=== PATIENT | female | born 1980 | race Caucasian/White ===

== ENCOUNTER 2019-05-24 01:39 | Emergency (ER) | payer OTHER, SELFPAY ==
[2019-05-24 01:49] VITALS: BP 148/88; PULSE 88; RESP 18; TEMP 36.2; O2SAT 100
--- NOTE | 2019-05-24 01:50 | ED.BURNSMOKE ---
HPI - Burn/Smoke Inhalation General Chief complaint: Burn/Smoke Inhalation Stated complaint: Burn/Smoke Inhalation Time Seen by Provider: 05/24/19 01:49 Source: patient and RN notes reviewed Mode of arrival: EMS Limitations: no limitations History of Present Illness HPI Narrative: A 38 y/o female presents to the ED with a burning to her lower lt leg that happened at 9 AM yesterday morning. She states that she was pouring boiling water into a sink when she spilt some onto the back of her lower lt leg. She reports that she then ran other errands and was trying to not come to the hospital but that [facility] was closed, so she decided to come to the ED because she thinks that she needs abx. Complaint: burn Onset (ago): day(s) (yesterday monring at 9 AM) Type of Exposure: hot liquid (water) Smoke Inhalation: none Place: home Location - Extremities: Left: lower leg Severity: mild Associated symptoms: denies other symptoms Related Data Allergies Allergy/AdvReac Type Severity Reaction Status Date / Time Penicillins AdvReac Mild RASH Verified 10/11/18 13:36 Review of Systems Review of Systems: All systems reviewed & are unremarkable except as noted in HPI and below Integumentary/Breasts: Skin/Breast: Reports other (burn to the back of lower lt leg) PMFSH Past Medical History Medical History (Updated 05/24/19 @ 02:24 by Heydi Carbajal MD) Depression Previous known suicide attempt Surgical History Surgical History (Updated 05/24/19 @ 02:01 by Sidney Crane) History of hysterectomy Hx of tubal ligation Social History Social History (Updated 05/24/19 @ 02:01 by Sidney Crane) Smoking packs per day: 1 Smoking cigarettes per day: 20.0 Smoking status: Current every day smoker Tobacco type: cigarettes Substance use: unknown Substance use type: amphetamines Gender identity (if verbalized by the patient): Female Exam Const: General: cooperative, no acute distress and alert Nutritional Appearance: well nourished Orientation/consciousness: patient oriented x3 Limitations: no limitations HENMT: Mouth: Yes lip normal and Yes moist mucous membranes Resp: Effort & Inspection: normal respiratory effort Auscultation: clear to auscultation bilaterally Cardio: Rate: regular rate Rhythm: regular rhythm Skin: General skin exam: normal color Wounds: wounds noted (2nd degree lateral aspect of LLE with some open sloughing blisters) Neuro: General: patient oriented x3 Cognition (Neuro): normal cognition Speech: normal speech Extrem: General: normal to inspection, full ROM and no clubbing, cyanosis or edema Psych: Mental Status: mental status grossly normal Affect: normal affect Attitude: cooperative Course Course Emergency Course: Patient resting comfortably in no distress from second-degree burn sustained yesterday. Patient tetanus shot updated and will discharge home with Silvadene and advised importance of primary care follow-up Vital Signs Vital signs: Vital Signs Temperature 97.1 F L 05/24/19 01:49 Pulse Rate 88 05/24/19 01:49 Respiratory Rate 18 05/24/19 01:49 Blood Pressure 148/88 H 05/24/19 01:49 Pulse Oximetry 100 05/24/19 01:49 Temperature 97.1 F L 05/24/19 01:49 Pulse Rate 88 05/24/19 01:49 Respiratory Rate 18 05/24/19 01:49 Blood Pressure 148/88 H 05/24/19 01:49 Pulse Oximetry 100 05/24/19 01:49 Critical Care Time Critical Care Time Critical Care Time: No Discharge Plan Discharge Clinical Impression: Second degree burn of left lower leg Qualifiers: Encounter type: initial encounter Qualified Code(s): T24.232A - Burn of second degree of left lower leg, initial encounter Patient Disposition: Home, Self-Care Condition: Stable Instructions: Second Degree Burn (ED) Additional Instructions: Gently clean burn twice daily with mild soap and water and apply Silvadene cream. Apply dry dressing. Follow-up with primary care provider in the office for fur
[2019-05-24] MEDS: SILVER SULFADIAZINE 1% CR 50 GM JAR (*BKC) 1 APPLIC TOPICAL (02:00)
[2019-05-24] MEDS: TETANUS,DIPHTHERIA,AC PERTUSSIS ADULT 0.5 ML (ADACEL) IM (02:00)
[2019-05-24 02:40] VITALS: BP 132/77; PULSE 88; RESP 18; O2SAT 98
== END 2019-05-24 02:42 | disposition home or self-care (01) ==
PROVIDERS: Emergency Provider Emergency Medicine; PCP Nurse Practitioner Family
DX: T24.232A Burn of second degree of left lower leg, initial encounter (principal); T31.0 Burns involving less than 10% of body surface; F17.210 Nicotine dependence, cigarettes, uncomplicated; Z23 Encounter for immunization; X12.XXXA Contact with other hot fluids, initial encounter
CPT/HCPCS: 16020; 90471; 90715; 99283; A9270

== ENCOUNTER 2019-10-07 15:36 | Emergency (ER) | payer OTHER, SELFPAY ==
--- NOTE | ~2019-10-07 | XR_ITS ---
EXAMINATION: XR chest 1V portable 10/07/2019 16:58 INDICATION: Near syncope PROCEDURE: AP portable chest COMPARISON: 10/11/2018 FINDINGS: The lungs are clear. The lungs are hyperinflated which is consistent with, but not diagnost ic of chronic obstructive pulmonary disease. The cardiomediastinal silhouette is within normal limits . There are no pleural effusions. There is no pneumothorax suspected. IMPRESSION: 1: NO ACUTE CARDIOPULMONARY DISEASE. Reviewed, dictated and finalized at location A.
[2019-10-07 15:43] VITALS: BP 118/81; PULSE 90; RESP 16; TEMP 36.3; O2SAT 98
[2019-10-07 15:56] VITALS: RESP 18; O2SAT 98
--- NOTE | 2019-10-07 16:24 | ED.GENADULT ---
HPI - General Adult General Chief complaint: Psychiatric Symptoms <Chevy Chavez DO - Last Filed: 10/07/19 18:19> Stated complaint: overheated/weakness <Chevy Chavez DO - Last Filed: 10/07/19 18:19> Time Seen by Provider: 10/07/19 15:42 <Chevy Chavez DO - Last Filed: 10/07/19 18:19> Source: RN notes reviewed <Chevy Chavez DO - Last Filed: 10/07/19 18:19> History of Present Illness HPI narrative: Patient presents emergency department for heat exposure. Patient states she was outside waiting at the bus stop when she felt like she is going to have a near syncopal episode secondary to overheating. States that she began to feel lightheaded and mildly nauseous. States that she feels better now that she is inside cool building. She denies any fevers or chills chest pain shortness of breath or any other symptoms. The patient does state that she has been having suicidal ideation. She states that this is worsened because she is homeless and does not have a place to go. She denies any attempt at harming herself denies any other symptoms at this time <Chevy Chavez DO - Last Filed: 10/07/19 18:19> Related Data Home medications: Home Medications Medication Instructions Recorded Confirmed No Home Medications 10/07/19 10/07/19 <hCevy Chavez DO - Last Filed: 10/07/19 18:19> Allergies/adverse reactions: Allergies Allergy/AdvReac Type Severity Reaction Status Date / Time Penicillins AdvReac Mild RASH Verified 10/07/19 18:27 <Chevy Chavez DO - Last Filed: 10/07/19 18:19> Review of Systems Review of Systems: Narrative: Gen.: Denies fevers or chills ENT: Denies congestion Respiratory: Denies shortness of breath or cough CV: Reports near syncope denies chest pain GI: Denies abdominal pain emesis or diarrhea, denies nausea Musculoskeletal: Denies back pain or muscle pain Neuro: Denies numbness, tingling, weakness or focal weakness Skin: Denies rash Except as documented, all other systems reviewed and negative <Chevy Chavez DO - Last Filed: 10/07/19 18:19> [facility] Past Medical History Medical History: Medical History Depression Previous known suicide attempt <Chevy Chavez DO - Last Filed: 10/07/19 18:19> Surgical History Surgical History: Surgical History (Updated 05/24/19 @ 02:01 by Sidney Crane) History of hysterectomy Hx of tubal ligation <Chevy Chavez DO - Last Filed: 10/07/19 18:19> Social History Social History: Social History Smoking packs per day: 1 Smoking cigarettes per day: 20.0 Smoking status: Current every day smoker Tobacco type: cigarettes Substance use: unknown Substance use type: amphetamines Gender identity (if verbalized by the patient): Female <Chevy Chavez DO - Last Filed: 10/07/19 18:19> Exam Narrative: Exam Narrative: APPEARANCE: No acute distress, nontoxic, resting in bed HEENT: Normocephalic, atraumatic, OMM, TMs clear bilaterally EYES: PERRL, EOMI NECK: Supple, nontender, full range of motion without pain, no meningismus RESPIRATORY: No respiratory distress, clear to auscultation bilaterally with no rhonchi wheezing or rales CARDIOVASCULAR: RRR s murmur ABDOMINAL: Soft, nontender, nondistended MUSCULOSKELETAL: Moves all extremities. No clubbing, cyanosis or edema. NEURO: A and O ?3, following commands, speech normal, cranial nerves II through XII grossly intact,muscle strength 5 out of 5 bilateral upper and lower extremities SKIN:: Warm, dry. Normal Color PSYCHIATRIC: Positive suicidal ideation, denies homicidal ideation <Chevy Chavez DO - Last Filed: 10/07/19 18:19> Course Reevaluation(s) Reevaluation #1: I took over case of patient from Dr. Chavez. Patient has had no complaints. She has been accepted to [facility] for psychiatric eval
[2019-10-07 16:33] LABS: Basophils Absolute Auto 0.1 K/mm3 (0.0-0.1); Basophils Percent Auto 0.4 % (0.2-1.2); Eosinophils Absolute Auto 0.2 K/mm3 (0-0.3); Hematocrit 39.4 % (37.0-47.0); Hemoglobin 13.3 g/dL (12.0-15.0); Immature Granulocyte Absolute 0.11 K/mm3 (0.00-0.031); Immature Granulocyte Percent A 0.6 % (0-0.5); Lymphocytes Absolute Auto 3.88 K/mm3 (0.9-3.2); Lymphocytes Percent Auto 20.3 % (18.3-44.2); Mean Corpuscular HGB Conc 33.8 g/dl (32-36); Mean Corpuscular Hemoglobin 29.1 pg (26-34); Mean Corpuscular Volume 86.2 fl (80-100); Mean Platelet Volume 10.2 fl (7.4-10.4); Monocytes Absolute Auto 0.8 K/mm3 (0.1-0.6); Neutrophils Percent Auto 73.7 % (45.5-73.1); Platelet Count Result 393 k/mm3 (150-375); Red Blood Count 4.57 M/mm3 (4.2-5.4); Red Cell Distribution Width 15.6 % (11.5-14.5); White Blood Count 19.1 K/mm3 (4.5-10.0)
[2019-10-07 16:43] LABS: Ethanol < 10 mg/dL (<10)
[2019-10-07] MEDS: SODIUM CHLORIDE 0.9% IV 1,000 ML 999 ML IV CONT (16:44)
[2019-10-07 16:46] LABS: Alanine Aminotransferase 17 U/L (4-35); Albumin Level 4.3 g/dL (3.5-5.1); Alkaline Phosphatase 126 U/L (38-126); Anion Gap 11.8 mmol/L (7-16); Aspartate Amino Transferase 18 U/L (14-36); Bilirubin,Total 0.3 mg/dL (0.2-1.3); Blood Urea Nitrogen 11 mg/dL (7-17); Calcium 8.6 mg/dL (8.4-10.2); Carbon Dioxide 25 mmol/L (22-30); Chloride 104 mmol/L (98-107); Creatine Kinase 77 U/L (30-135); Estimated CRCL calculation 99 ml/min; Estimated Glomerular Filt Rate > 60; Glucose 99 mg/dL (65-105); Potassium 3.8 mmol/L (3.4-5.0); Sodium 137 mmol/L (137-145)
[2019-10-07 16:57] LABS: Troponin I < 0.012 ng/mL (0.000-0.034)
[2019-10-07 17:51] LABS: Add Urine Microscopic? NO; Appearance Urine Clear (Clear); Bilirubin Urine Negative (Negative); Blood Urine Negative (Negative); Color Urine Yellow (Yellow); Glucose Urine UA Negative (Negative); Ketones Urine Negative (Negative); Leukocyte Esterase Ur Negative LEU/UL (Negative); Nitrate Urine Negative (Negative); Protein Urine Negative (Negative); Specific Grav Ur 1.023 (1.001-1.035); Urobilinogen Urine Negative mg/dL (<2.0)
[2019-10-07 18:17] LABS: Barbiturate Screen Urine Negative (Negative); Benzodiazepines Screen Urine Negative (Negative)
[2019-10-07 18:23] LABS: Cannabinoid Screen Urine Positive (Negative); Cocaine Screen Urine Negative (Negative); Methadone Screen Urine Negative (Negative); Opiate Screen Urine Negative (Negative); Phencyclidine Screen Urine Negative (Negative)
[2019-10-07 19:06] LABS: Amphetamine Screen Urine Positive (Negative)
--- NOTE | 2019-10-07 19:42 | ECG_ITS ---
Measurements Intervals [place] Rate: 89 P: 23 MO: 155 QRS: -14 QRSD: 82 T: 9 QT: 358 QTc: 437 Interpretive Statements SINUS RHYTHM RSR' IN V1 OR V2, CONSIDER RIGHT VENTRICULAR HYPERTROPHY OR RIGHT VCD BORDERLINE R WAVE PROGRESSION, ANTERIOR LEADS BORDERLINE T WAVE ABNORMALITY- ANT/INF LEADS BORDERLINE ECG Electronically Signed On 10-07-2019 20:23:44 CDT by Quan Ford D.O.
[2019-10-07 20:00] VITALS: BP 121/76; PULSE 78; RESP 16; O2SAT 97
--- NOTE | 2019-10-07 22:10 | PC.NURSE ---
Face sheet faxed to [facility]
--- NOTE | 2019-10-07 23:45 | PC.NURSE ---
[phone]--Packet faxed to [facility] [phone]--Packet faxed to [facility]
[2019-10-08] VITALS: BP 118/80; PULSE 80; RESP 18; TEMP 36.3; O2SAT 98
--- NOTE | 2019-10-08 00:32 | PC.NURSE ---
[facility] called back and is requesting Covid swab-ordered by Dr Hammond and done on patient
--- NOTE | 2019-10-08 01:05 | PC.NURSE ---
Patient on phone interview with Beth Kaminski
--- NOTE | 2019-10-08 05:15 | PC.NURSE ---
Report to [facility] at [facility]----Transport called
[2019-10-08 20:42] LABS: SARS-CoV-2 RNA PCR Negative
== END 2019-10-08 05:50 ==
PROVIDERS: Emergency Medicine; Emergency Provider General Practice; PCP Nurse Practitioner Family
DX: R45.851 Suicidal ideations (principal); F17.210 Nicotine dependence, cigarettes, uncomplicated; Z11.59 Encounter for screening for other viral diseases; R94.31 Abnormal electrocardiogram [ECG] [EKG]
CPT/HCPCS: 36415; 71045; 80053; 80307; 81003; 81025; 82550; 84443; 84484; 85025; 87635; 93005; 96360; 96361; 99285; C9803; J7030; U0003

== ENCOUNTER 2019-11-26 14:32 | Emergency (ER) | payer OTHER, SELFPAY ==
[2019-11-26 14:47] VITALS: BP 125/95; PULSE 98; RESP 18; TEMP 37; O2SAT 100
--- NOTE | 2019-11-26 15:40 | ED.PSYCH ---
HPI - Psych General Chief Complaint: Psychiatric Symptoms Stated Complaint: SI Source: patient and EMS Mode of arrival: EMS Limitations: no limitations History of Present Illness HPI Narrative: 39-year-old female Brought in by EMS for evaluation of suicidal ideations Patient story seems to fluctuate depending on who she is discussing with She tells me that the police were supposed to take her to crisis and the crisis was supposed to find her a place She is not super forthcoming with details on this but when pressed she says that crisis is [facility], and that she had talked with them yesterday, and that the reason was for having suicidal thoughts She has no plan She denies recent medical problems, she denies recent ingestions MD complaint: suicidal ideation Onset (ago): day(s) Duration: intermittent History of same: Yes Treatments prior to arrival: none Related Data Home Medications Medication Instructions Recorded Confirmed No Home Medications 10/07/19 10/07/19 Allergies Allergy/AdvReac Type Severity Reaction Status Date / Time Penicillins AdvReac Mild RASH Verified 10/07/19 18:27 Review of Systems Review of Systems: All systems reviewed & are unremarkable except as noted in HPI and below Constitutional: Constitutional: Denies chills, Denies fatigue, Denies fever(s), Denies headache(s) and Denies night sweats Eyes: Eyes: Denies change in vision, Denies loss of vision and Denies other visual disturbances ENT: Denies headache(s), Denies hoarseness, Denies nasal congestion and Denies sore throat Cardiovascular: Cardiovascular: Denies chest pain, Denies leg edema, Denies palpitations and Denies dyspnea Respiratory: Respiratory: Denies cough, Denies dyspnea and Denies wheezing Gastrointestinal: Gastrointestinal: Denies abdominal pain, Denies diarrhea, Denies nausea and Denies vomiting Genitourinary: Genitourinary: Denies hematuria, Denies urinary frequency and Denies dysuria Musculoskeletal: Musculoskeletal: Denies abnormal gait, Denies deformity, Denies joint swelling, Denies muscle weakness and Denies numbness Integumentary/Breasts: Skin/Breast: Denies rash, Denies unusual bruising and Denies wounds Neurologic: Denies abnormal gait, Denies headache(s), Denies focal weakness, Denies loss of vision and Denies numbness Psychiatric: Psychiatric: Reports no additional psychiatric complaints and Denies depression Endocrine: Endocrine: Denies fatigue and Denies palpitations Hematologic/Lymphatic: Hematologic/Lymphatic: Denies easy bleeding and Denies easy bruising Allergic/Immunologic: Allergic/Immunologic: Denies wheezing PMFSH Surgical History Surgical History (Updated 05/24/19 @ 02:01 by Sidney Crane) History of hysterectomy Hx of tubal ligation Social History Social History Smoking packs per day: 1 Smoking cigarettes per day: 20.0 Smoking status: Current every day smoker Tobacco type: cigarettes Substance use: unknown Substance use type: amphetamines Gender identity (if verbalized by the patient): Female Exam Const: General: healthy appearing, no acute distress and well developed Nutritional Appearance: well nourished Orientation/consciousness: patient oriented x3 (alert) and Other orientation findings (Alert) Limitations: no limitations HENMT: Head: normocephalic and atraumatic Ears: external ears normal General nose exam: No nasal discharge present Face and sinus: face symmetric Mouth: Yes lip normal, Yes tongue normal and Yes moist mucous membranes Throat: other (No exudate, no erythema) Eyes: Conjunctivae: conjunctivae normal Sclera: sclerae normal EOM: EOMs intact bilaterally Neck: Neck: full ROM, no lymphadenopathy and supple Thyroid: thyroid normal Resp: Effort & Inspection: normal respiratory effort Auscultation: clear to auscultation bilaterally, no rales, no rhonchi, no wheezes and other (breath sound
[2019-11-26 16:02] LABS: Add Urine Microscopic? YES; Appearance Urine Cloudy (Clear); Bacteria Urine Trace /hpf; Bilirubin Urine Negative (Negative); Blood Urine Negative (Negative); Color Urine Amber (Yellow); Glucose Urine UA Negative (Negative); Ketones Urine 1+ mg/dL (Negative); Leukocyte Esterase Ur Negative LEU/UL (Negative); Mucus Urine Heavy /lpf; Nitrate Urine Negative (Negative); Protein Urine 1+ mg/dL (Negative); Specific Grav Ur 1.029 (1.001-1.035); Squamous Epithelial Cell Urine Many /hpf (Few); WBC Urine 0-3 /hpf
[2019-11-26 16:02] LABS: Basophils Absolute Auto 0.1 K/mm3 (0.0-0.1); Basophils Percent Auto 0.3 % (0.2-1.2); Eosinophils Absolute Auto 0.1 K/mm3 (0-0.3); Eosinophils Percent Auto 0.4 % (0-4.4); Hematocrit 37.5 % (37.0-47.0); Hemoglobin 12.7 g/dL (12.0-15.0); Immature Granulocyte Absolute 0.11 K/mm3 (0.00-0.031); Immature Granulocyte Percent A 0.6 % (0-0.5); Lymphocytes Absolute Auto 1.82 K/mm3 (0.9-3.2); Lymphocytes Percent Auto 10.3 % (18.3-44.2); Mean Corpuscular HGB Conc 33.9 g/dl (32-36); Mean Corpuscular Hemoglobin 29.6 pg (26-34); Mean Corpuscular Volume 87.4 fl (80-100); Mean Platelet Volume 9.3 fl (7.4-10.4); Monocytes Absolute Auto 0.7 K/mm3 (0.1-0.6); Monocytes Percent Auto 3.8 % (2.6-8.5); Neutrophils Percent Auto 84.6 % (45.5-73.1); Platelet Count Result 332 k/mm3 (150-375); Red Blood Count 4.29 M/mm3 (4.2-5.4); Red Cell Distribution Width 15.6 % (11.5-14.5); White Blood Count 17.7 K/mm3 (4.5-10.0)
[2019-11-26 16:14] LABS: Ethanol < 10 mg/dL (<10)
[2019-11-26 16:15] LABS: Alanine Aminotransferase 39 U/L (4-35); Albumin Level 3.8 g/dL (3.5-5.1); Alkaline Phosphatase 119 U/L (38-126); Anion Gap 6 mmol/L (8-16); Aspartate Amino Transferase 27 U/L (14-36); Bilirubin,Total 0.7 mg/dL (0.2-1.3); Blood Urea Nitrogen 10 mg/dL (7-17); Calcium 8.6 mg/dL (8.4-10.2); Carbon Dioxide 28 mmol/L (22-30); Chloride 104 mmol/L (98-107); Estimated CRCL calculation 90 ml/min; Estimated Glomerular Filt Rate > 60; Glucose 147 mg/dL (65-105); Potassium 3.6 mmol/L (3.4-5.0); Sodium 138 mmol/L (137-145)
[2019-11-26 16:21] LABS: Barbiturate Screen Urine Negative (Negative); Benzodiazepines Screen Urine Negative (Negative)
[2019-11-26 16:24] LABS: Cannabinoid Screen Urine Positive (Negative); Cocaine Screen Urine Negative (Negative); Methadone Screen Urine Negative (Negative); Opiate Screen Urine Negative (Negative); Phencyclidine Screen Urine Negative (Negative)
[2019-11-26 16:45] LABS: Thyroid Stimulating Hormone 0.266 uIU/mL (0.465-4.680)
[2019-11-26 16:58] LABS: Amphetamine Screen Urine Positive (Negative)
[2019-11-26 20:34] VITALS: BP 121/88; PULSE 90; RESP 16; O2SAT 100
== END 2019-11-26 20:38 | disposition home or self-care (01) ==
PROVIDERS: Emergency Provider Emergency Medicine; PCP Nurse Practitioner Family
DX: F32.9 Major depressive disorder, single episode, unspecified (principal); F17.210 Nicotine dependence, cigarettes, uncomplicated
CPT/HCPCS: 36415; 80053; 80307; 81001; 81025; 84443; 85025; 99284

== ENCOUNTER 2020-11-30 02:19 | Emergency (ER) | payer OTHER, SELFPAY ==
[2020-11-30 02:28] VITALS: BP 137/83; PULSE 88; RESP 20; TEMP 36.5; O2SAT 100
[2020-11-30 03:02] LABS: Basophils Absolute Auto 0.1 K/mm3 (0.0-0.1); Basophils Percent Auto 0.4 % (0.2-1.2); Eosinophils Absolute Auto 0.4 K/mm3 (0-0.3); Eosinophils Percent Auto 2.6 % (0-4.4); Hemoglobin 12.1 g/dL (12.0-15.0); Immature Granulocyte Absolute 0.06 K/mm3 (0.00-0.031); Immature Granulocyte Percent A 0.4 % (0-0.5); Lymphocytes Absolute Auto 3.25 K/mm3 (0.9-3.2); Lymphocytes Percent Auto 20.6 % (18.3-44.2); Mean Corpuscular HGB Conc 32.7 g/dl (32-36); Mean Corpuscular Hemoglobin 29.2 pg (26-34); Mean Corpuscular Volume 89.4 fl (80-100); Mean Platelet Volume 9.8 fl (7.4-10.4); Monocytes Absolute Auto 0.6 K/mm3 (0.1-0.6); Monocytes Percent Auto 3.5 % (2.6-8.5); Neutrophils Absolute Auto 11.5 K/mm3 (1.3-6.7); Neutrophils Percent Auto 72.5 % (45.5-73.1); Platelet Count Result 359 k/mm3 (150-375); Red Blood Count 4.14 M/mm3 (4.2-5.4); Red Cell Distribution Width 16.9 % (11.5-14.5); White Blood Count 15.8 K/mm3 (4.5-10.0)
[2020-11-30 03:15] LABS: Lactic Acid Reflex 1.4 mmol/L (0.7-2.1)
[2020-11-30 03:17] LABS: Alanine Aminotransferase 30 U/L (4-35); Alkaline Phosphatase 98 U/L (38-126); Anion Gap 6 mmol/L (8-16); Aspartate Amino Transferase 29 U/L (14-36); Bilirubin,Total 0.2 mg/dL (0.2-1.3); Blood Urea Nitrogen 14 mg/dL (7-17); Calcium 8.5 mg/dL (8.4-10.2); Carbon Dioxide 30 mmol/L (22-30); Chloride 104 mmol/L (98-107); Estimated CRCL calculation 95 ml/min; Estimated Glomerular Filt Rate > 60; Glucose 104 mg/dL (65-110); Potassium 3.6 mmol/L (3.4-5.0); Sodium 140 mmol/L (137-145)
--- NOTE | 2020-11-30 03:19 | ED.SKABFB ---
HPI - Skin/Abscess/Foreign Bdy General Chief complaint: Wound/Laceration Stated complaint: Swollen eye Time Seen by Provider: 11/30/20 02:47 Source: patient Mode of arrival: ambulatory Limitations: no limitations History of Present Illness HPI narrative: Patient is a 40-year-old female complaining of right facial swelling after popping a pimple on her forehead right above her right eye 3 days ago. Patient denies any fever or chills. Patient denies any lip, tongue or throat swelling. Related Data Home Medications Medication Instructions Recorded Confirmed No Home Medications 10/07/19 10/07/19 Allergies Allergy/AdvReac Type Severity Reaction Status Date / Time Penicillins AdvReac Mild RASH Verified 11/30/20 02:45 Review of Systems Review of Systems: All systems reviewed & are unremarkable except as noted in HPI and below PMFSH Past Medical History Medical History (Updated 11/30/20 @ 03:25 by Chevy Mejias MD) Depression Previous known suicide attempt Surgical History Surgical History History of hysterectomy Hx of tubal ligation Social History Social History Smoking packs per day: 1 Smoking cigarettes per day: 20.0 Smoking status: Current every day smoker Tobacco type: cigarettes Substance use: unknown Substance use type: amphetamines Gender identity (if verbalized by the patient): Female Exam Const: General: cooperative, healthy appearing, comfortable, no acute distress, well developed, alert and awake; No confusion Orientation/consciousness: oriented to person, oriented to place, oriented to time, patient oriented x3 and No confusion Limitations: no limitations HENMT: Head: normal to inspection, normocephalic and atraumatic Ears: hearing grossly normal bilaterally, TM normal on the right and TM normal on the left General nose exam: Normal external nose present, Normal nares present and No nasal discharge present Mouth: Yes Normal oral and palatal mucosa present, Yes lip normal, Yes tongue normal and Yes oropharynx normal Throat: posterior oropharynx normal, tonsils normal and uvula midline Other: Erythematous, tender, swollen right supraorbital and frontal head Eyes: General: appearance normal, both eyes and all related structures Pupils: Equal, round and reactive pupils present EOM: EOMs intact bilaterally Neck: Neck: normal visual inspection, full ROM, no lymphadenopathy and no meningeal signs Chest: Chest palpation & inspection: normal inspection of the chest Resp: Effort & Inspection: normal respiratory effort, able to speak in complete sentences, no respiratory distress and not tachypneic Auscultation: clear to auscultation bilaterally, no crackles, no rales, no rhonchi and no wheezes Cardio: Rate: regular rate Rhythm: regular rhythm GI: Inspection: normal to inspection GI Palp: No abdominal tenderness, Yes Soft to palpation, No Tenderness to palpation present (GI), No Guarding due to palpation present (GI), No Rigid due to palpation and No Rebound tenderness present Auscultation: normal bowel sounds : General: Yes no CVA tenderness Back/Spine/Pelvis: Back: no CVA tenderness Skin: General skin exam: no rashes or lesions noted, elasticity normal and turgor normal Other: Right sided facial cellulitis Neuro: General: oriented to person, oriented to place, oriented to time, patient oriented x3, tone normal, moves all extremities, Normal light touch and pain sensation, no meningeal signs, no focal motor deficits, CN's II-XI intact bilaterally and No confusion Cranial nerves: Yes Equal, round and reactive pupils present Speech: No Abnormal speech present Sensory Exam: No Sensory deficit (Neuro) Extrem: General: normal to inspection, full ROM and capillary refill normal Psych: Appearance: grossly normal and well kempt Mental Status: mental status grossly
[2020-11-30] MEDS: CLINDAMYCIN 600 MG/D5W 50 ML 600 MG/50 ML PIGGYBACK 100 MG IVPB (03:30)
[2020-11-30 03:55] VITALS: BP 127/79; PULSE 79; RESP 17; O2SAT 100
[2020-11-30 04:51] VITALS: BP 129/87; PULSE 67; RESP 15; O2SAT 99
[2020-11-30] MEDS: HYDROcodone/acetaminophen (*CRX) 5-325 MG TABLET 1 TAB PO (04:51)
[2020-11-30] MEDS: KETOROLAC 30 MG/ML VIAL (*BKC) IV PUSH (04:51)
== END 2020-11-30 04:58 | disposition home or self-care (01) ==
LOC: ANHED 03:22
PROVIDERS: Emergency Provider Emergency Medicine; PCP Nurse Practitioner Family
DX: L03.211 Cellulitis of face (principal); F17.210 Nicotine dependence, cigarettes, uncomplicated
CPT/HCPCS: 36415; 80053; 83605; 85025; 96365; 96375; 99284; A9270; J1885